=== PATIENT | female | born 1960 | race Caucasian/White ===

== ENCOUNTER 2025-01-19 09:07 | Emergency (ER) | payer OTHER ==
[~2025-01-19] VITALS: Ht 162.6 cm; Wt 99.8 kg
[2025-01-19 09:31] VITALS: TEMP 98.5
[2025-01-19 10:09] VITALS: PULSE 72; RESP 18; O2SAT 97
== END 2025-01-19 10:20 | disposition home or self-care (01) ==
LOC: ER 09:56
DX: M54.2 Cervicalgia (principal); M54.9 Dorsalgia, unspecified; V43.52XA Car driver injured in collision with other type car in traffic accident, initial encounter; I10 Essential (primary) hypertension; E11.9 Type 2 diabetes mellitus without complications; E78.5 Hyperlipidemia, unspecified
CPT/HCPCS: 99282